=== PATIENT | female | born 1955 | race Caucasian/White ===

== ENCOUNTER 2019-10-18 04:07 | Inpatient (IN) | payer MEDICAID, MEDICARE ==
[~2019-10-18] VITALS: Ht 167.6 cm; Wt 79.5 kg
[2019-10-18 04:54] LABS: MEAN CORPUSCULAR HEMOGLOBIN 28.7 pg (27.0-34.8); MEAN CORPUSCULAR HGB CONC 33.2 g/dL (32.4-35.8); MEAN CORPUSCULAR VOLUME 86.6 fL (80-100); MEAN PLATELET VOLUME 7.5 fL (7.4-10.4); PLATELET COUNT 326 x10^3/uL (130-400); RED BLOOD COUNT 3.98 x10^6/uL (3.82-5.3); RED CELL DISTRIBUTION WIDTH 15.7 % (9.6-15.2)
[2019-10-18 05:03] LABS: ALBUMIN 2.2 g/dL (3.4-5.0); ANION GAP 13 mmol/L (5-15); CALCIUM 8.6 mg/dL (8.5-10.1); CHLORIDE 106 mmol/L (98-107)
--- NOTE | 2019-10-18 05:03 | NUR ---
Patient BIB ambulance from [facility] c/o SOB. Patient has a hx of COPD. She was initially picked up from home by EMS c/o SOB worsening x4 days. Patient states her family has been sick and she caught a cold with chest congestion and cough. Per EMS, initial RA sat is 80%. No home O2. During her visit at [facility], patient experienced an episode of afib with RVR which she spontaneously converted back to NSR. Patient denied any CP, nausea, or dizziness. Patient unaware if she has a hx of afib. Patient arrived by EMS on 15 lpm on NRB. RA sat 78%. Oxygen reapplied. Patient has labored but even respirations. Skin PWD.
[2019-10-18 05:08] LABS: ALANINE AMINOTRANSFERASE 31 U/L (12-78); ALKALINE PHOSPHATASE 170 U/L (45-117); BILIRUBIN,TOTAL 1.2 mg/dL (0.2-1.0); CREATININE 1.81 mg/dL (0.55-1.02); TOTAL PROTEIN 7.5 g/dL (6.4-8.2)
[2019-10-18 05:09] LABS: BASOPHILS # (AUTO) 0.04 x10^3/uL (0-0.1); BASOPHILS % (AUTO) 0 % (0-1); EOSINOPHILS # (AUTO) 0.03 x10^3/uL (0-0.4); EOSINOPHILS % (AUTO) 0 % (1-7); LYMPHOCYTES # (AUTO) 0.71 x10^3/uL (1-3.4); LYMPHOCYTES % (AUTO) 5 % (22-44); MD SCAN; MONOCYTES # (AUTO) 0.76 x10^3/uL (0.2-0.8); MONOCYTES % (AUTO) 5 % (2-9); NEUTROPHILS # (AUTO) 13.75 x10^3/uL (1.8-6.8); NEUTROPHILS % (AUTO) 90 % (42-75)
[2019-10-18 05:14] LABS: TROPONIN I 0.199 ng/mL (0.000-0.045)
[2019-10-18] MEDS ORDERED: HYDR12.517 PO (05:32)
[2019-10-18] MEDS ORDERED: BRIM5DRO3 EACHEYE (05:32)
[2019-10-18] MEDS ORDERED: CHOL10003 PO (05:32)
[2019-10-18] MEDS ORDERED: INSU100V13 SC (05:32)
[2019-10-18] MEDS ORDERED: INSU100C5 SQ-INSULIN (05:32)
[2019-10-18] MEDS ORDERED: MAGN250T8 PO (05:32)
[2019-10-18] MEDS ORDERED: NAPR220C62 PO (05:32)
[2019-10-18] MEDS ORDERED: ATOR-2 PO (05:32)
[2019-10-18] MEDS ORDERED: OMEG-14 PO (05:32)
[2019-10-18] MEDS ORDERED: DORZ10DR26 EACHEYE (05:32)
[2019-10-18] MEDS ORDERED: METF500T27 PO (05:32)
[2019-10-18] MEDS ORDERED: LORA10TA62 PO (05:32)
[2019-10-18] MEDS ORDERED: AMLO10TA8 PO (05:32)
[2019-10-18] MEDS ORDERED: LISI2.5T PO (05:32)
[2019-10-18] MEDS ORDERED: SODIUM CHLORIDE 0.9% 1,000 ML IV ONE (06:48)
--- NOTE | 2019-10-18 07:14 | NUR ---
LATE ENTRY 0700 SBAR RPT REC'D AND PT CARE ASSUMED
--- NOTE | 2019-10-18 07:15 | NUR ---
PILLOW PROVIDED, PT SITTING ON GURNEY WITH HOB UP 90 DEGREES. HIGH FLOW NC AT 56% PT SP02 = 93-94%. PT DENIES PAIN, VSS. POSTERIOR RIGHT SIDE LUNG SOUNDS RHONCHI AND DEGREASED T/O. PT ONLY COMPLAINT "MY BREATHING" PT INCREASED WOB WITH ACTIVITY AND TALKING. CALL LIGHT W/I REACH. POC DISCUSSED AND QUESTIONS ANSWERED. HOSPITAL BED REQUESTED FROM [facility]EEP[facility]
--- NOTE | 2019-10-18 07:34 | NUR ---
PT OOB TO B[facility] WITH RN STANDBY ASSIST. VOIDED W/O DIFFICULTY AND RTD TO BED W/O INCIDENT. CALL LIGHT W/I REACH
--- NOTE | 2019-10-18 07:48 | NUR ---
[facility]. CALL LIGHT W/I REACH
[2019-10-18] MEDS ORDERED: BISACODYL 10 MG SUPP PR PRN (08:00)
[2019-10-18] MEDS ORDERED: OXYcodone IR 5MG TABLET PO PRN (08:00)
[2019-10-18] MEDS ORDERED: POLYETHYLENE GLYCOL 17 GM PACKET PO PRN (08:00)
[2019-10-18] MEDS ORDERED: ONDANSETRON 2MG/ML, 2ML IVPush PRN (08:00)
[2019-10-18] MEDS ORDERED: PLEASE ENTER ALLERGIES MC SCH (08:00)
[2019-10-18] MEDS ORDERED: ENALAPRILAT 1.25 MG/ML, 2ML IVPush PRN (08:00)
[2019-10-18] MEDS ORDERED: ENOXAPARIN 40 MG/0.4 ML ONE (08:27)
[2019-10-18] MEDS ORDERED: PANTOPRAZOLE 20MG TABLET ONE (08:27)
[2019-10-18] MEDS ORDERED: metFORMIN 500 MG TABLET ONE (08:28)
[2019-10-18] MEDS ORDERED: AMLODIPINE 5 MG TABLET ONE (08:28)
[2019-10-18] MEDS ORDERED: SENNA/DOCUSATE TABLET ONE (08:28)
[2019-10-18] MEDS ORDERED: CEFTRIAXONE PMX 1GM/50ML 50 ML ONE (08:28)
[2019-10-18] MEDS: CEFTRIAXONE PMX 1GM/50ML 50 ML IV SCH (08:36)
[2019-10-18] MEDS: SODIUM CHLORIDE 0.9% 1,000 ML IV SCH ×2 (08:36→20:29)
[2019-10-18] MEDS: SENNA/DOCUSATE TABLET PO SCH (08:37)
[2019-10-18] MEDS: ENOXAPARIN 40 MG/0.4 ML SQ SCH (08:37)
[2019-10-18] MEDS: AMLODIPINE 10 MG TAB PO SCH (08:37)
[2019-10-18] MEDS: PANTOPROZOLE 40MG TABLET PO SCH (08:38)
[2019-10-18] MEDS ORDERED: TEMPLATE NON-FORMULARY MED. (Metformin Hcl** (Metformin Hcl Er**) 500 MG) PO SCH (09:00)
[2019-10-18] MEDS: AZITHROMYCIN 500 MG in SODIUM CHLORIDE 0.9% 250 ML IV SCH (10:26)
[2019-10-18] MEDS: LORATADINE 10 MG TABLET PO SCH (10:34)
[2019-10-18] MEDS: CHOLECALCIFEROL 1,000 UNIT TABLET PO SCH (10:34)
[2019-10-18 10:52] LABS: RAPID INFLUENZA A Negative (Negative); RAPID INFLUENZA B Negative (Negative)
[2019-10-18] MEDS: INSULIN LISPRO 100 UNITS/ML, PEN SQ-INSULIN SCH ×3 (12:39→20:31)
[2019-10-18] MEDS: DORZOLAMIDE OPHTH 2%, 10ML EACHEYE SCH (12:40)
[2019-10-18] MEDS: BRIMONIDINE TARTRATE OPHTH 0.15%, 5ML EACHEYE SCH ×2 (12:40→15:53)
[2019-10-18 17:54] VITALS: BP 126/67
[2019-10-18 18:57] LABS: TROPONIN I 0.093 ng/mL (0.000-0.045)
[2019-10-18 20:28] VITALS: BP 153/83
[2019-10-18] MEDS: ATORVASTATIN 80 MG TABLET PO SCH (20:29)
[2019-10-18] MEDS: INSULIN GLARGINE 100 UNITS/ML, PEN SQ-INSULIN SCH (20:30)
[2019-10-19] MEDS: BRIMONIDINE TARTRATE OPHTH 0.15%, 5ML EACHEYE SCH ×4 (01:25→23:37)
[2019-10-19 01:38] VITALS: BP 151/77
[2019-10-19 02:59] LABS: ANION GAP 10 mmol/L (5-15); CHLORIDE 106 mmol/L (98-107); CREATININE 1.49 mg/dL (0.55-1.02)
[2019-10-19 03:00] LABS: ALANINE AMINOTRANSFERASE 24 U/L (12-78); ALBUMIN 1.8 g/dL (3.4-5.0)
[2019-10-19 03:02] LABS: ALKALINE PHOSPHATASE 144 U/L (45-117); BILIRUBIN,TOTAL 0.5 mg/dL (0.2-1.0); TOTAL PROTEIN 6.2 g/dL (6.4-8.2)
[2019-10-19 03:09] LABS: MEAN CORPUSCULAR HEMOGLOBIN 28.6 pg (27.0-34.8); MEAN CORPUSCULAR HGB CONC 33.1 g/dL (32.4-35.8); MEAN CORPUSCULAR VOLUME 86.3 fL (80-100); MEAN PLATELET VOLUME 7.7 fL (7.4-10.4); PLATELET COUNT 258 x10^3/uL (130-400); RED CELL DISTRIBUTION WIDTH 15.2 % (9.6-15.2)
[2019-10-19 03:11] LABS: MD YES
[2019-10-19 03:12] LABS: BAND#(MANUAL) 1.19 x10^3/uL; BANDS%(MANUAL) 6 % (0-7); LYMPHS% (MANUAL) 1 % (22-44); METAMYELOCYTES% (MANUAL) 1 % (0-1); MONOS#(MANUAL) 1.19 x10^3/uL (0.3-2.7); MONOS% (MANUAL) 6 % (2-9); MYELOCYTES# (MANUAL) 0.59 x10^3/uL (0-0); MYELOCYTES% (MANUAL) 3 % (0-0); SEG#(MANUAL) 16.43 x10^3/uL (1.8-6.8); SEGS% (MANUAL) 83 % (42-75)
[2019-10-19 03:13] LABS: <PLATELET ESTIMATE> ADEQUATE; <PLT MORPHOLOGY> NORMAL PLT MORPH; <RBC MORPHOLOGY> NORMAL
[2019-10-19 06:50] VITALS: BP 157/78
[2019-10-19] MEDS: SODIUM CHLORIDE 0.9% 1,000 ML IV SCH (08:39)
[2019-10-19] MEDS: CEFTRIAXONE PMX 1GM/50ML 50 ML IV SCH (08:39)
[2019-10-19] MEDS: INSULIN GLARGINE 100 UNITS/ML, PEN SQ-INSULIN SCH ×2 (08:40→21:00)
[2019-10-19] MEDS: SENNA/DOCUSATE TABLET PO SCH (08:41)
[2019-10-19] MEDS: INSULIN LISPRO 100 UNITS/ML, PEN SQ-INSULIN SCH ×4 (08:41→20:59)
[2019-10-19] MEDS: LORATADINE 10 MG TABLET PO SCH (08:42)
[2019-10-19] MEDS: CHOLECALCIFEROL 1,000 UNIT TABLET PO SCH (08:42)
[2019-10-19] MEDS: PANTOPROZOLE 40MG TABLET PO SCH (08:42)
[2019-10-19] MEDS: ENOXAPARIN 40 MG/0.4 ML SQ SCH (08:42)
[2019-10-19] MEDS: AMLODIPINE 10 MG TAB PO SCH (08:42)
[2019-10-19] MEDS: DORZOLAMIDE OPHTH 2%, 10ML EACHEYE SCH (08:43)
[2019-10-19] MEDS ORDERED: metFORMIN XR 500 MG TAB.ER.24H PO SCH (09:00)
[2019-10-19] MEDS: AZITHROMYCIN 500 MG in SODIUM CHLORIDE 0.9% 250 ML IV SCH (10:27)
[2019-10-19 13:30] VITALS: BP 146/70
[2019-10-19 17:40] VITALS: BP 137/77
[2019-10-19 19:37] VITALS: BP 149/67
[2019-10-19] MEDS: ATORVASTATIN 80 MG TABLET PO SCH (20:59)
[2019-10-20 01:30] VITALS: BP 140/80
[2019-10-20 06:02] LABS: MEAN CORPUSCULAR HEMOGLOBIN 28.4 pg (27.0-34.8); MEAN CORPUSCULAR VOLUME 85.8 fL (80-100); MEAN PLATELET VOLUME 6.7 fL (7.4-10.4); PLATELET COUNT 378 x10^3/uL (130-400); RED BLOOD COUNT 3.81 x10^6/uL (3.82-5.3); RED CELL DISTRIBUTION WIDTH 15.4 % (9.6-15.2)
[2019-10-20 06:10] LABS: ANION GAP 10 mmol/L (5-15); CHLORIDE 107 mmol/L (98-107)
[2019-10-20 06:14] LABS: ALANINE AMINOTRANSFERASE 30 U/L (12-78); ALKALINE PHOSPHATASE 154 U/L (45-117); BILIRUBIN,TOTAL 0.5 mg/dL (0.2-1.0); TOTAL PROTEIN 6.7 g/dL (6.4-8.2)
[2019-10-20 06:32] LABS: MD YES
[2019-10-20 06:34] LABS: LYMPHS% (MANUAL) 11 % (22-44); METAMYELOCYTES# (MANUAL) 0.16 x10^3/uL (0-0); METAMYELOCYTES% (MANUAL) 1 % (0-1); MONOS#(MANUAL) 1.31 x10^3/uL (0.3-2.7); MONOS% (MANUAL) 8 % (2-9); MYELOCYTES# (MANUAL) 0.16 x10^3/uL (0-0); MYELOCYTES% (MANUAL) 1 % (0-0); SEG#(MANUAL) 12.96 x10^3/uL (1.8-6.8); SEGS% (MANUAL) 79 % (42-75)
[2019-10-20 06:35] LABS: ANISOCYTOSIS 1+; OVALOCYTES 1+; POLYCHROMASIA 1+
[2019-10-20 06:36] LABS: <PLATELET ESTIMATE> ADEQUATE; <PLT MORPHOLOGY> NORMAL PLT MORPH
[2019-10-20] MEDS: AMLODIPINE 10 MG TAB PO SCH (08:18)
[2019-10-20] MEDS: PANTOPROZOLE 40MG TABLET PO SCH (08:18)
[2019-10-20] MEDS: LORATADINE 10 MG TABLET PO SCH (08:18)
[2019-10-20] MEDS: CHOLECALCIFEROL 1,000 UNIT TABLET PO SCH (08:18)
[2019-10-20] MEDS: BRIMONIDINE TARTRATE OPHTH 0.15%, 5ML EACHEYE SCH ×2 (08:19→16:11)
[2019-10-20] MEDS: INSULIN LISPRO 100 UNITS/ML, PEN SQ-INSULIN SCH ×4 (08:19→21:11)
[2019-10-20] MEDS: ENOXAPARIN 40 MG/0.4 ML SQ SCH (08:19)
[2019-10-20] MEDS: DORZOLAMIDE OPHTH 2%, 10ML EACHEYE SCH (08:19)
[2019-10-20 08:20] VITALS: BP 158/83
[2019-10-20] MEDS: INSULIN GLARGINE 100 UNITS/ML, PEN SQ-INSULIN SCH ×2 (08:20→21:12)
[2019-10-20] MEDS: SENNA/DOCUSATE TABLET PO SCH (08:21)
[2019-10-20] MEDS: CEFTRIAXONE PMX 1GM/50ML 50 ML IV SCH (09:01)
[2019-10-20] MEDS: AZITHROMYCIN 500 MG in SODIUM CHLORIDE 0.9% 250 ML IV SCH (10:41)
[2019-10-20 16:15] VITALS: BP 153/78
[2019-10-20] MEDS: ATORVASTATIN 80 MG TABLET PO SCH (21:12)
[2019-10-20 21:13] VITALS: BP 178/78
[2019-10-20] MEDS ORDERED: ENALAPRILAT 1.25 MG/ML, 1ML ONE (21:19)
[2019-10-20 22:34] VITALS: BP 168/81
[2019-10-21] MEDS: BRIMONIDINE TARTRATE OPHTH 0.15%, 5ML EACHEYE SCH ×4 (00:49→23:11)
[2019-10-21 00:54] VITALS: BP 157/81
[2019-10-21 05:10] LABS: MEAN CORPUSCULAR HEMOGLOBIN 28.7 pg (27.0-34.8); MEAN CORPUSCULAR HGB CONC 33.6 g/dL (32.4-35.8); MEAN CORPUSCULAR VOLUME 85.6 fL (80-100); MEAN PLATELET VOLUME 6.6 fL (7.4-10.4); PLATELET COUNT 395 x10^3/uL (130-400); RED BLOOD COUNT 4.08 x10^6/uL (3.82-5.3); RED CELL DISTRIBUTION WIDTH 15.1 % (9.6-15.2)
[2019-10-21 05:15] LABS: ANION GAP 10 mmol/L (5-15); CALCIUM 8.6 mg/dL (8.5-10.1); CHLORIDE 105 mmol/L (98-107); CREATININE 0.99 mg/dL (0.55-1.02)
[2019-10-21 05:45] LABS: MD YES
[2019-10-21 05:47] LABS: <PLATELET ESTIMATE> ADEQUATE; <PLT MORPHOLOGY> NORMAL PLT MORPH; <RBC MORPHOLOGY> NORMAL; BAND#(MANUAL) 0.68 x10^3/uL; BANDS%(MANUAL) 4 % (0-7); EOS#(MANUAL) 0.17 x10^3/uL (0.0-0.4); EOS% (MANUAL) 1 % (1-7); LYMPH#(MANUAL) 1.87 x10^3/uL (1-3.4); LYMPHS% (MANUAL) 11 % (22-44); MONOS#(MANUAL) 1.02 x10^3/uL (0.3-2.7); MONOS% (MANUAL) 6 % (2-9); MYELOCYTES# (MANUAL) 0.34 x10^3/uL (0-0); MYELOCYTES% (MANUAL) 2 % (0-0); SEG#(MANUAL) 12.92 x10^3/uL (1.8-6.8); SEGS% (MANUAL) 76 % (42-75)
[2019-10-21 06:54] VITALS: BP 143/75
[2019-10-21] MEDS: DORZOLAMIDE OPHTH 2%, 10ML EACHEYE SCH (08:44)
[2019-10-21] MEDS: AMLODIPINE 10 MG TAB PO SCH (08:45)
[2019-10-21] MEDS: CHOLECALCIFEROL 1,000 UNIT TABLET PO SCH (08:45)
[2019-10-21] MEDS: PANTOPROZOLE 40MG TABLET PO SCH (08:45)
[2019-10-21] MEDS: SENNA/DOCUSATE TABLET PO SCH (08:45)
[2019-10-21] MEDS: CEFTRIAXONE PMX 1GM/50ML 50 ML IV SCH (08:45)
[2019-10-21] MEDS: LORATADINE 10 MG TABLET PO SCH (08:45)
[2019-10-21] MEDS: ENOXAPARIN 40 MG/0.4 ML SQ SCH (08:46)
[2019-10-21] MEDS: INSULIN LISPRO 100 UNITS/ML, PEN SQ-INSULIN SCH ×4 (08:47→20:14)
[2019-10-21] MEDS: INSULIN GLARGINE 100 UNITS/ML, PEN SQ-INSULIN SCH ×2 (08:47→20:14)
[2019-10-21] MEDS: AZITHROMYCIN 500 MG in SODIUM CHLORIDE 0.9% 250 ML IV SCH (10:28)
[2019-10-21 11:59] VITALS: BP 135/76
[2019-10-21 12:05] VITALS: BP 135/76
[2019-10-21] MEDS: FUROSEMIDE 20 MG/2 ML IV SCH (16:28)
[2019-10-21] MEDS: methylPREDNISolone SOD SUCC 40 MG/ML IVPush SCH ×2 (16:28→23:00)
[2019-10-21 18:59] VITALS: BP 138/69
[2019-10-21] MEDS: ATORVASTATIN 80 MG TABLET PO SCH (20:12)
[2019-10-22 01:36] VITALS: BP 143/72
[2019-10-22] MEDS: methylPREDNISolone SOD SUCC 40 MG/ML IVPush SCH ×4 (05:27→23:37)
[2019-10-22 06:01] LABS: ANION GAP 10 mmol/L (5-15); CALCIUM 8.6 mg/dL (8.5-10.1); CHLORIDE 101 mmol/L (98-107)
[2019-10-22 06:09] LABS: MEAN CORPUSCULAR HEMOGLOBIN 28.5 pg (27.0-34.8); MEAN CORPUSCULAR HGB CONC 33.1 g/dL (32.4-35.8); MEAN CORPUSCULAR VOLUME 86.3 fL (80-100); MEAN PLATELET VOLUME 6.8 fL (7.4-10.4); PLATELET COUNT 382 x10^3/uL (130-400); RED CELL DISTRIBUTION WIDTH 14.5 % (9.6-15.2)
[2019-10-22 06:51] LABS: MD YES
[2019-10-22 06:53] LABS: <PLATELET ESTIMATE> ADEQUATE; <PLT MORPHOLOGY> NORMAL PLT MORPH; LYMPH#(MANUAL) 0.45 x10^3/uL (1-3.4); LYMPHS% (MANUAL) 2 % (22-44); MONOS#(MANUAL) 0.45 x10^3/uL (0.3-2.7); MONOS% (MANUAL) 2 % (2-9); POLYCHROMASIA 1+; SEG#(MANUAL) 21.79 x10^3/uL (1.8-6.8); SEGS% (MANUAL) 96 % (42-75)
[2019-10-22 07:30] VITALS: BP 133/68
[2019-10-22] MEDS: FUROSEMIDE 20 MG/2 ML IV SCH ×2 (08:13→16:06)
[2019-10-22] MEDS: LORATADINE 10 MG TABLET PO SCH (08:14)
[2019-10-22] MEDS: PANTOPROZOLE 40MG TABLET PO SCH (08:14)
[2019-10-22] MEDS: SENNA/DOCUSATE TABLET PO SCH (08:14)
[2019-10-22] MEDS: ENOXAPARIN 40 MG/0.4 ML SQ SCH (08:15)
[2019-10-22] MEDS: CHOLECALCIFEROL 1,000 UNIT TABLET PO SCH (08:15)
[2019-10-22] MEDS: AMLODIPINE 10 MG TAB PO SCH (08:15)
[2019-10-22] MEDS: CEFTRIAXONE PMX 1GM/50ML 50 ML IV SCH (08:16)
[2019-10-22] MEDS: BRIMONIDINE TARTRATE OPHTH 0.15%, 5ML EACHEYE SCH ×3 (08:17→23:38)
[2019-10-22] MEDS: DORZOLAMIDE OPHTH 2%, 10ML EACHEYE SCH (08:17)
[2019-10-22] MEDS: AZITHROMYCIN 500 MG in SODIUM CHLORIDE 0.9% 250 ML IV SCH (10:19)
[2019-10-22] MEDS: INSULIN LISPRO 100 UNITS/ML, PEN SQ-INSULIN SCH ×4 (10:19→21:29)
[2019-10-22] MEDS: INSULIN GLARGINE 100 UNITS/ML, PEN SQ-INSULIN SCH ×2 (10:20→21:30)
[2019-10-22 12:21] VITALS: BP 126/77
[2019-10-22] MEDS ORDERED: INSULIN LISPRO 100 UNIT/ML, 3ML VIAL SQ-INSULIN SCH (12:30)
[2019-10-22] MEDS ORDERED: INSULIN LISPRO 100 UNITS/ML, PEN SQ-INSULIN SCH (12:30)
[2019-10-22] MEDS ORDERED: INSULIN LISPRO 100 UNITS/ML, PEN SQ-INSULIN ONE (17:00)
[2019-10-22] MEDS ORDERED: INSULIN GLARGINE 100 UNITS/ML, PEN SQ-INSULIN SCH (21:00)
[2019-10-22] MEDS: ATORVASTATIN 80 MG TABLET PO SCH (21:25)
[2019-10-22] MEDS: ALBUTEROL/IPRATROPIUM 2.5MG/0.5MG, 3 ML NPPB SCH (22:36)
[2019-10-23] MEDS: methylPREDNISolone SOD SUCC 40 MG/ML IVPush SCH ×4 (04:27→21:25)
[2019-10-23 04:39] LABS: MEAN CORPUSCULAR HEMOGLOBIN 28.3 pg (27.0-34.8); MEAN CORPUSCULAR HGB CONC 32.5 g/dL (32.4-35.8); MEAN CORPUSCULAR VOLUME 86.9 fL (80-100); MEAN PLATELET VOLUME 6.9 fL (7.4-10.4); PLATELET COUNT 456 x10^3/uL (130-400); RED BLOOD COUNT 4.01 x10^6/uL (3.82-5.3)
[2019-10-23 04:51] LABS: ANION GAP 10 mmol/L (5-15); CALCIUM 8.7 mg/dL (8.5-10.1); CHLORIDE 103 mmol/L (98-107); CREATININE 1.06 mg/dL (0.55-1.02)
[2019-10-23 05:00] VITALS: BP 129/55
[2019-10-23] MEDS: INSULIN LISPRO 100 UNITS/ML, PEN SQ-INSULIN SCH ×4 (05:59→16:27)
[2019-10-23 06:02] LABS: MD YES
[2019-10-23 06:03] LABS: LYMPH#(MANUAL) 0.92 x10^3/uL (1-3.4); LYMPHS% (MANUAL) 4 % (22-44); MONOS#(MANUAL) 0.92 x10^3/uL (0.3-2.7); MONOS% (MANUAL) 4 % (2-9); MYELOCYTES# (MANUAL) 0.23 x10^3/uL (0-0); MYELOCYTES% (MANUAL) 1 % (0-0); SEG#(MANUAL) 20.93 x10^3/uL (1.8-6.8); SEGS% (MANUAL) 91 % (42-75)
[2019-10-23 06:04] LABS: <PLATELET ESTIMATE> INCREASED; <PLT MORPHOLOGY> NORMAL PLT MORPH; ANISOCYTOSIS 1+; POLYCHROMASIA 1+
[2019-10-23] MEDS: ALBUTEROL/IPRATROPIUM 2.5MG/0.5MG, 3 ML NPPB SCH ×4 (06:33→19:33)
[2019-10-23] MEDS: SENNA/DOCUSATE TABLET PO SCH (09:00)
[2019-10-23] MEDS: CEFTRIAXONE PMX 1GM/50ML 50 ML IV SCH (10:02)
[2019-10-23] MEDS: FUROSEMIDE 20 MG/2 ML IV SCH ×2 (10:02→16:35)
[2019-10-23] MEDS: AMLODIPINE 10 MG TAB PO SCH (10:03)
[2019-10-23] MEDS: ENOXAPARIN 40 MG/0.4 ML SQ SCH (10:03)
[2019-10-23] MEDS: LORATADINE 10 MG TABLET PO SCH (10:03)
[2019-10-23] MEDS: PANTOPROZOLE 40MG TABLET PO SCH (10:03)
[2019-10-23] MEDS: CHOLECALCIFEROL 1,000 UNIT TABLET PO SCH (10:03)
[2019-10-23] MEDS: INSULIN GLARGINE 100 UNITS/ML, PEN SQ-INSULIN SCH (10:04)
[2019-10-23] MEDS: BRIMONIDINE TARTRATE OPHTH 0.15%, 5ML EACHEYE SCH ×3 (11:15→23:36)
[2019-10-23] MEDS: DORZOLAMIDE OPHTH 2%, 10ML EACHEYE SCH (11:16)
[2019-10-23] MEDS: AZITHROMYCIN 500 MG in SODIUM CHLORIDE 0.9% 250 ML IV SCH (11:16)
[2019-10-23] MEDS ORDERED: INSULIN LISPRO 100 UNITS/ML, PEN SQ-INSULIN SCH ×2 (13:00→21:00)
[2019-10-23] MEDS: ATORVASTATIN 80 MG TABLET PO SCH (21:25)
[2019-10-23] MEDS: REGULAR INSULIN 100 UNITS in SODIUM CHLORIDE 0.9% 99 ML IV PRN (21:40)
[2019-10-24 04:20] LABS: BASOPHILS # (AUTO) 0.02 x10^3/uL (0-0.1); BASOPHILS % (AUTO) 0 % (0-1); EOSINOPHILS % (AUTO) 0 % (1-7); LYMPHOCYTES # (AUTO) 0.46 x10^3/uL (1-3.4); LYMPHOCYTES % (AUTO) 4 % (22-44); MD NO; MEAN CORPUSCULAR HEMOGLOBIN 28.3 pg (27.0-34.8); MEAN CORPUSCULAR HGB CONC 32.8 g/dL (32.4-35.8); MEAN CORPUSCULAR VOLUME 86.2 fL (80-100); MEAN PLATELET VOLUME 7.2 fL (7.4-10.4); MONOCYTES # (AUTO) 0.29 x10^3/uL (0.2-0.8); MONOCYTES % (AUTO) 2 % (2-9); NEUTROPHILS # (AUTO) 12.28 x10^3/uL (1.8-6.8); NEUTROPHILS % (AUTO) 94 % (42-75); PLATELET COUNT 457 x10^3/uL (130-400); RED CELL DISTRIBUTION WIDTH 15.2 % (9.6-15.2)
[2019-10-24 04:21] LABS: ANION GAP 9 mmol/L (5-15); CALCIUM 8.8 mg/dL (8.5-10.1); CHLORIDE 103 mmol/L (98-107); CREATININE 1.05 mg/dL (0.55-1.02)
[2019-10-24] MEDS: methylPREDNISolone SOD SUCC 40 MG/ML IVPush SCH ×4 (04:31→21:46)
[2019-10-24] MEDS: ACETAMINOPHEN 325 MG TABLET PO PRN ×2 (06:13→15:08)
[2019-10-24] MEDS: ALBUTEROL/IPRATROPIUM 2.5MG/0.5MG, 3 ML NPPB SCH (06:56)
[2019-10-24] MEDS: AMLODIPINE 10 MG TAB PO SCH (08:34)
[2019-10-24] MEDS: PANTOPROZOLE 40MG TABLET PO SCH (08:35)
[2019-10-24] MEDS: LORATADINE 10 MG TABLET PO SCH (08:35)
[2019-10-24] MEDS: SENNA/DOCUSATE TABLET PO SCH (08:36)
[2019-10-24] MEDS: CHOLECALCIFEROL 1,000 UNIT TABLET PO SCH (08:36)
[2019-10-24] MEDS: DORZOLAMIDE OPHTH 2%, 10ML EACHEYE SCH (08:37)
[2019-10-24] MEDS: BRIMONIDINE TARTRATE OPHTH 0.15%, 5ML EACHEYE SCH ×3 (08:38→23:35)
[2019-10-24] MEDS: FUROSEMIDE 20 MG/2 ML IV SCH ×2 (08:38→16:14)
[2019-10-24] MEDS: REGULAR INSULIN 100 UNITS in SODIUM CHLORIDE 0.9% 99 ML IV PRN ×2 (08:41→18:45)
[2019-10-24] MEDS: ENOXAPARIN 40 MG/0.4 ML SQ SCH (08:42)
[2019-10-24] MEDS: CEFTRIAXONE PMX 1GM/50ML 50 ML IV SCH (08:42)
[2019-10-24] MEDS: AZITHROMYCIN 500 MG in SODIUM CHLORIDE 0.9% 250 ML IV SCH (09:41)
[2019-10-24] MEDS: ATORVASTATIN 80 MG TABLET PO SCH (21:46)
[2019-10-25] MEDS: REGULAR INSULIN 100 UNITS in SODIUM CHLORIDE 0.9% 99 ML IV PRN ×2 (00:43→06:30)
[2019-10-25] MEDS: methylPREDNISolone SOD SUCC 40 MG/ML IVPush SCH ×4 (04:56→21:31)
[2019-10-25] MEDS: ACETAMINOPHEN 325 MG TABLET PO PRN (05:28)
[2019-10-25 06:20] LABS: ANION GAP 10 mmol/L (5-15); CHLORIDE 106 mmol/L (98-107); CREATININE 0.96 mg/dL (0.55-1.02)
[2019-10-25 06:22] LABS: BASOPHILS % (AUTO) 0 % (0-1); EOSINOPHILS # (AUTO) 0.17 x10^3/uL (0-0.4); EOSINOPHILS % (AUTO) 1 % (1-7); LYMPHOCYTES # (AUTO) 0.68 x10^3/uL (1-3.4); LYMPHOCYTES % (AUTO) 4 % (22-44); MD NO; MEAN CORPUSCULAR HEMOGLOBIN 28.6 pg (27.0-34.8); MEAN CORPUSCULAR HGB CONC 33.5 g/dL (32.4-35.8); MEAN CORPUSCULAR VOLUME 85.2 fL (80-100); MEAN PLATELET VOLUME 7.3 fL (7.4-10.4); MONOCYTES # (AUTO) 0.71 x10^3/uL (0.2-0.8); MONOCYTES % (AUTO) 4 % (2-9); NEUTROPHILS # (AUTO) 14.64 x10^3/uL (1.8-6.8); NEUTROPHILS % (AUTO) 90 % (42-75); PLATELET COUNT 558 x10^3/uL (130-400); RED BLOOD COUNT 4.21 x10^6/uL (3.82-5.3); RED CELL DISTRIBUTION WIDTH 15.1 % (9.6-15.2)
[2019-10-25 06:24] LABS: CALCIUM 8.9 mg/dL (8.5-10.1)
[2019-10-25] MEDS: CEFTRIAXONE PMX 1GM/50ML 50 ML IV SCH (07:03)
[2019-10-25] MEDS: PANTOPROZOLE 40MG TABLET PO SCH (07:04)
[2019-10-25] MEDS: FUROSEMIDE 20 MG/2 ML IV SCH (07:04)
[2019-10-25] MEDS: BRIMONIDINE TARTRATE OPHTH 0.15%, 5ML EACHEYE SCH ×3 (07:05→23:10)
[2019-10-25] MEDS: AMLODIPINE 10 MG TAB PO SCH (08:14)
[2019-10-25] MEDS: CHOLECALCIFEROL 1,000 UNIT TABLET PO SCH (08:14)
[2019-10-25] MEDS: SENNA/DOCUSATE TABLET PO SCH (08:14)
[2019-10-25] MEDS: LORATADINE 10 MG TABLET PO SCH (08:14)
[2019-10-25] MEDS: ENOXAPARIN 40 MG/0.4 ML SQ SCH (08:15)
[2019-10-25] MEDS: DORZOLAMIDE OPHTH 2%, 10ML EACHEYE SCH (08:15)
[2019-10-25] MEDS: POTASSIUM CHLORIDE 20 MEQ TAB.ER.PRT PO SCH ×2 (09:14→21:31)
[2019-10-25] MEDS: AZITHROMYCIN 500 MG in SODIUM CHLORIDE 0.9% 250 ML IV SCH (09:31)
[2019-10-25] MEDS ORDERED: INSULIN LISPRO 100 UNITS/ML, PEN SQ-INSULIN SCH (11:30)
[2019-10-25] MEDS ORDERED: INSULIN GLARGINE 100 UNITS/ML, PEN SQ-INSULIN ONE (11:30)
[2019-10-25] MEDS ORDERED: INSULIN LISPRO 100 UNITS/ML, PEN SQ-INSULIN ONE (15:00)
[2019-10-25] MEDS: INSULIN LISPRO 100 UNITS/ML, PEN SQ-INSULIN SCH ×2 (16:01→21:36)
[2019-10-25 18:28] VITALS: BP 135/61
[2019-10-25 19:40] VITALS: BP 124/63
[2019-10-25] MEDS: ATORVASTATIN 80 MG TABLET PO SCH (21:31)
[2019-10-25] MEDS: INSULIN GLARGINE 100 UNITS/ML, PEN SQ-INSULIN SCH (21:36)
[2019-10-25] MEDS ORDERED: INSULIN LISPRO 100 UNIT/ML, 3ML VIAL SQ-INSULIN ONE (22:30)
[2019-10-26 01:48] VITALS: BP 128/70
[2019-10-26 05:27] LABS: BASOPHILS # (AUTO) 0.02 x10^3/uL (0-0.1); BASOPHILS % (AUTO) 0 % (0-1); EOSINOPHILS # (AUTO) 0.11 x10^3/uL (0-0.4); EOSINOPHILS % (AUTO) 1 % (1-7); LYMPHOCYTES # (AUTO) 0.52 x10^3/uL (1-3.4); LYMPHOCYTES % (AUTO) 4 % (22-44); MD NO; MEAN CORPUSCULAR HEMOGLOBIN 28.3 pg (27.0-34.8); MEAN CORPUSCULAR VOLUME 85.7 fL (80-100); MEAN PLATELET VOLUME 7.2 fL (7.4-10.4); MONOCYTES # (AUTO) 0.48 x10^3/uL (0.2-0.8); MONOCYTES % (AUTO) 4 % (2-9); NEUTROPHILS % (AUTO) 91 % (42-75); PLATELET COUNT 506 x10^3/uL (130-400); RED CELL DISTRIBUTION WIDTH 14.8 % (9.6-15.2)
[2019-10-26 05:41] LABS: CALCIUM 8.6 mg/dL (8.5-10.1); CHLORIDE 105 mmol/L (98-107)
[2019-10-26 05:45] LABS: ANION GAP 7 mmol/L (5-15); CREATININE 0.88 mg/dL (0.55-1.02)
[2019-10-26 06:32] VITALS: BP 121/62
[2019-10-26] MEDS: ENOXAPARIN 40 MG/0.4 ML SQ SCH (08:36)
[2019-10-26] MEDS: FUROSEMIDE 20 MG/2 ML IV SCH (08:37)
[2019-10-26] MEDS: CEFTRIAXONE PMX 1GM/50ML 50 ML IV SCH (08:37)
[2019-10-26] MEDS: methylPREDNISolone SOD SUCC 40 MG/ML IVPush SCH ×2 (08:37→22:01)
[2019-10-26] MEDS: CHOLECALCIFEROL 1,000 UNIT TABLET PO SCH (08:38)
[2019-10-26] MEDS: AMLODIPINE 10 MG TAB PO SCH (08:38)
[2019-10-26] MEDS: LORATADINE 10 MG TABLET PO SCH (08:38)
[2019-10-26] MEDS: SENNA/DOCUSATE TABLET PO SCH (08:38)
[2019-10-26] MEDS: PANTOPROZOLE 40MG TABLET PO SCH (08:38)
[2019-10-26] MEDS: DORZOLAMIDE OPHTH 2%, 10ML EACHEYE SCH (08:39)
[2019-10-26] MEDS: INSULIN GLARGINE 100 UNITS/ML, PEN SQ-INSULIN SCH ×2 (08:39→22:00)
[2019-10-26] MEDS: INSULIN LISPRO 100 UNITS/ML, PEN SQ-INSULIN SCH ×4 (08:39→22:01)
[2019-10-26] MEDS: BRIMONIDINE TARTRATE OPHTH 0.15%, 5ML EACHEYE SCH ×2 (08:40→16:58)
[2019-10-26] MEDS: POTASSIUM CHLORIDE 20 MEQ TAB.ER.PRT PO SCH (08:41)
[2019-10-26] MEDS: AZITHROMYCIN 500 MG in SODIUM CHLORIDE 0.9% 250 ML IV SCH (10:17)
[2019-10-26 12:35] VITALS: BP 123/63
--- NOTE | 2019-10-26 15:29 | NUR ---
Pt will need home health care. Addendum: 10/26/19 at 1530 by Jonathan Delcid PT Amended: Links added.
[2019-10-26] MEDS ORDERED: OMNIPAQUE 350 MG/ML, 100ML BOTTLE ONE (16:26)
[2019-10-26 19:40] VITALS: BP 136/72
[2019-10-26] MEDS: ATORVASTATIN 80 MG TABLET PO SCH (21:57)
[2019-10-27] MEDS: BRIMONIDINE TARTRATE OPHTH 0.15%, 5ML EACHEYE SCH ×3 (00:15→17:05)
[2019-10-27 00:19] VITALS: BP 145/75
[2019-10-27 05:28] LABS: CHLORIDE 106 mmol/L (98-107); MEAN CORPUSCULAR HEMOGLOBIN 28.4 pg (27.0-34.8); MEAN CORPUSCULAR HGB CONC 33.2 g/dL (32.4-35.8); MEAN CORPUSCULAR VOLUME 85.5 fL (80-100); MEAN PLATELET VOLUME 7.3 fL (7.4-10.4); PLATELET COUNT 537 x10^3/uL (130-400); RED BLOOD COUNT 3.59 x10^6/uL (3.82-5.3); RED CELL DISTRIBUTION WIDTH 14.8 % (9.6-15.2)
[2019-10-27 05:34] LABS: ANION GAP 9 mmol/L (5-15); CALCIUM 8.4 mg/dL (8.5-10.1)
[2019-10-27 06:06] LABS: BASOPHILS % (AUTO) 0 % (0-1); EOSINOPHILS # (AUTO) 0.18 x10^3/uL (0-0.4); EOSINOPHILS % (AUTO) 1 % (1-7); LYMPHOCYTES # (AUTO) 0.31 x10^3/uL (1-3.4); LYMPHOCYTES % (AUTO) 2 % (22-44); MD SCAN; MONOCYTES # (AUTO) 0.34 x10^3/uL (0.2-0.8); MONOCYTES % (AUTO) 2 % (2-9); NEUTROPHILS # (AUTO) 14.47 x10^3/uL (1.8-6.8); NEUTROPHILS % (AUTO) 95 % (42-75)
[2019-10-27] MEDS: PANTOPROZOLE 40MG TABLET PO SCH (06:37)
[2019-10-27 06:59] VITALS: BP 152/69
[2019-10-27] MEDS: CHOLECALCIFEROL 1,000 UNIT TABLET PO SCH (08:45)
[2019-10-27] MEDS: SENNA/DOCUSATE TABLET PO SCH (08:45)
[2019-10-27] MEDS: FUROSEMIDE 20 MG/2 ML IV SCH (08:45)
[2019-10-27] MEDS: methylPREDNISolone SOD SUCC 40 MG/ML IVPush SCH ×2 (08:45→20:07)
[2019-10-27] MEDS: ENOXAPARIN 40 MG/0.4 ML SQ SCH (08:45)
[2019-10-27] MEDS: LORATADINE 10 MG TABLET PO SCH (08:45)
[2019-10-27] MEDS: AMLODIPINE 10 MG TAB PO SCH (08:45)
[2019-10-27] MEDS: INSULIN GLARGINE 100 UNITS/ML, PEN SQ-INSULIN SCH ×2 (08:46→20:08)
[2019-10-27] MEDS: INSULIN LISPRO 100 UNITS/ML, PEN SQ-INSULIN SCH ×4 (08:46→20:09)
[2019-10-27] MEDS: CEFTRIAXONE PMX 1GM/50ML 50 ML IV SCH (08:47)
[2019-10-27] MEDS: DORZOLAMIDE OPHTH 2%, 10ML EACHEYE SCH (08:47)
[2019-10-27] MEDS: AZITHROMYCIN 500 MG in SODIUM CHLORIDE 0.9% 250 ML IV SCH (10:17)
[2019-10-27 12:48] VITALS: BP 138/65
[2019-10-27] MEDS: ATORVASTATIN 80 MG TABLET PO SCH (20:08)
[2019-10-27 20:49] VITALS: BP 147/66
[2019-10-28] MEDS: BRIMONIDINE TARTRATE OPHTH 0.15%, 5ML EACHEYE SCH ×3 (00:38→15:33)
[2019-10-28 00:48] VITALS: BP 156/74
[2019-10-28 06:15] LABS: BASOPHILS # (AUTO) 0.02 x10^3/uL (0-0.1); BASOPHILS % (AUTO) 0 % (0-1); EOSINOPHILS # (AUTO) 0.05 x10^3/uL (0-0.4); EOSINOPHILS % (AUTO) 0 % (1-7); LYMPHOCYTES # (AUTO) 0.64 x10^3/uL (1-3.4); LYMPHOCYTES % (AUTO) 5 % (22-44); MD NO; MEAN CORPUSCULAR HEMOGLOBIN 28.1 pg (27.0-34.8); MEAN CORPUSCULAR HGB CONC 32.9 g/dL (32.4-35.8); MEAN CORPUSCULAR VOLUME 85.6 fL (80-100); MEAN PLATELET VOLUME 7.2 fL (7.4-10.4); MONOCYTES # (AUTO) 0.38 x10^3/uL (0.2-0.8); MONOCYTES % (AUTO) 3 % (2-9); NEUTROPHILS # (AUTO) 12.41 x10^3/uL (1.8-6.8); NEUTROPHILS % (AUTO) 92 % (42-75); PLATELET COUNT 566 x10^3/uL (130-400); RED BLOOD COUNT 3.78 x10^6/uL (3.82-5.3)
[2019-10-28 06:26] LABS: ANION GAP 6 mmol/L (5-15); CALCIUM 8.7 mg/dL (8.5-10.1); CHLORIDE 107 mmol/L (98-107)
[2019-10-28 06:27] LABS: CREATININE 0.76 mg/dL (0.55-1.02)
[2019-10-28] MEDS: PANTOPROZOLE 40MG TABLET PO SCH (06:37)
[2019-10-28 06:53] VITALS: BP 145/75
[2019-10-28] MEDS: INSULIN LISPRO 100 UNITS/ML, PEN SQ-INSULIN SCH ×3 (07:58→16:00)
[2019-10-28] MEDS: methylPREDNISolone SOD SUCC 40 MG/ML IVPush SCH (07:59)
[2019-10-28] MEDS: ENOXAPARIN 40 MG/0.4 ML SQ SCH (07:59)
[2019-10-28] MEDS: INSULIN GLARGINE 100 UNITS/ML, PEN SQ-INSULIN SCH (07:59)
[2019-10-28] MEDS: CHOLECALCIFEROL 1,000 UNIT TABLET PO SCH (07:59)
[2019-10-28] MEDS: AMLODIPINE 10 MG TAB PO SCH (07:59)
[2019-10-28] MEDS: DORZOLAMIDE OPHTH 2%, 10ML EACHEYE SCH (08:00)
[2019-10-28] MEDS: LORATADINE 10 MG TABLET PO SCH (08:00)
[2019-10-28] MEDS: SENNA/DOCUSATE TABLET PO SCH (08:01)
[2019-10-28] MEDS: CEFTRIAXONE PMX 1GM/50ML 50 ML IV SCH (08:12)
[2019-10-28] MEDS ORDERED: FUROSEMIDE 40 MG TABLET PO SCH (09:00)
[2019-10-28] MEDS: AZITHROMYCIN 500 MG in SODIUM CHLORIDE 0.9% 250 ML IV SCH (10:35)
[2019-10-28] MEDS ORDERED: AZIT500T PO (11:32)
[2019-10-28] MEDS ORDERED: CEFD300C37 PO (11:32)
[2019-10-28] MEDS ORDERED: SENN-193 PO (11:32)
[2019-10-28] MEDS ORDERED: FURO40TA6 PO (11:32)
[2019-10-28] MEDS ORDERED: PRED5TAB PO (11:34)
[2019-10-28 14:03] VITALS: BP 153/76
== END 2019-10-28 17:15 | disposition home or self-care (01) | DRG 720 ==
LOC: ED 04:56 → EDIP 07:06 → CCU 09:17 → 5SO 17:36 → CCU 10-22 16:33 → 5SO 10-25 18:23 → DCLOUNGE 10-28 16:58
PROVIDERS: ADMIT Internal Medicine; ATTEND Internal Medicine
DX: A41.9 Sepsis, unspecified organism (principal); I21.9 Acute myocardial infarction, unspecified; E43 Unspecified severe protein-calorie malnutrition; J96.01 Acute respiratory failure with hypoxia; N17.0 Acute kidney failure with tubular necrosis; R65.21 Severe sepsis with septic shock; J15.9 Unspecified bacterial pneumonia; I50.33 Acute on chronic diastolic (congestive) heart failure; I11.0 Hypertensive heart disease with heart failure; I48.0 Paroxysmal atrial fibrillation; E10.65 Type 1 diabetes mellitus with hyperglycemia; E55.9 Vitamin D deficiency, unspecified; E78.5 Hyperlipidemia, unspecified; H40.9 Unspecified glaucoma; J44.0 Chronic obstructive pulmonary disease with (acute) lower respiratory infection; J44.1 Chronic obstructive pulmonary disease with (acute) exacerbation; T38.0X5A Adverse effect of glucocorticoids and synthetic analogues, initial encounter; Z79.4 Long term (current) use of insulin; Z82.49 Family history of ischemic heart disease and other diseases of the circulatory system; Z83.3 Family history of diabetes mellitus; Y92.89 Other specified places as the place of occurrence of the external cause
CPT/HCPCS: 36415; 36600; 71045; 71275; 80048; 80053; 82803; 82947; 82962; 83605; 83735; 83880; 84100; 84484; 85025; 86850; 86900; 87040; 87070; 87081; 87205; 87400; 93005; 93306; 93356; 94640; 99291; G0378; J0456; J0696; J1650; J1815; Q9967; J1940; J2920; J7030; J7050